=== PATIENT | female | born 1960 | race Caucasian/White ===

== ENCOUNTER 2016-09-09 16:34 | Outpatient (CLI) | payer OTHER | END 2016-09-09 16:35 | disposition home or self-care (01) | DX: R07.81 Pleurodynia (principal) ==

== ENCOUNTER 2018-11-14 17:49 | Emergency (ER) | payer OTHER ==
[2018-11-14 18:00] VITALS: BP 124/86
--- NOTE | 2018-11-14 18:49 | XRAY Report ---
Reason: pain, fall,twisted Procedure Date: 11/14/2018 Accession Number: [id number] / [id number] Procedure: XR - Ankle 3 View RT CPT Code: FULL RESULT: EXAM: RIGHT ANKLE RADIOGRAPHY EXAM DATE: 11/14/2018 06:18 PM. CLINICAL HISTORY: Pain, fall,twisted. COMPARISON: None. TECHNIQUE: 3 views. FINDINGS: Bones: Normal. No fractures or bone lesions. Joints: Normal. No effusion. No subluxations. The ankle mortise is normally aligned. Soft Tissues: There is ossification of the inferior Achilles tendon. IMPRESSION: Negative for fracture and subluxation. RADIA
[2018-11-14] MEDS ORDERED: ACETAMINOPHEN 325 MG TABLET PO STA (19:23)
[2018-11-14] MEDS ORDERED: IBUPROFEN 600 MG TABLET PO STA (19:23)
--- NOTE | 2018-11-14 19:24 | ED Physician Documentation ---
PD HPI LOWER EXT INJURY - Stated complaint Stated Complaint: RT FOOT PX - Chief complaint Chief Complaint: Trauma Ext - History obtained from History obtained from: Patient - History of Present Illness PD HPI LOW EXT INJURY LOCATION: Right, Ankle, Foot Type of injury: Twist (inversion) Where injury occurred: Work Timing - onset: Today Timing - details: Abrupt onset, Still present Worsened by: Moving, Other (walking) Associated symptoms: Swelling. No: Weakness, Numbness Similar symptoms before: Has not had sx before Review of Systems Skin: denies: Abrasion (s), Laceration (s) Musculoskeletal: reports: Joint swelling (right ankle) Neurologic: denies: Focal weakness, Numbness PD PAST MEDICAL HISTORY - Past Medical History Past Medical History: No - Past Surgical History Past Surgical History: No - Allergies Allergies/Adverse Reactions: Allergies Allergy/AdvReac Type Severity Reaction Status Date / Time No Known Drug Allergies Allergy Verified 11/14/18 18:00 - Social History Does the pt smoke?: No Smoking Status: Never smoker Does the pt drink ETOH?: Yes ETOH Use: Beer Does the pt have substance abuse?: No PD ED PE NORMAL - Vitals Vital signs reviewed: Yes - General General: Alert and oriented X 3, No acute distress, Well developed/nourished - Derm Derm: Normal color, Warm and dry - Extremities Extremities: Other (right ankle with tenderness right anterolateral aspect, with swelling. Medial and posterior not tender. ) - Neuro Neuro: No motor deficit, No sensory deficit Results - Vitals Vitals: Vital Signs - 24 hr 11/14/18 17:58 Temperature 37.0 C Heart Rate 116 H Respiratory 18 Rate Blood Pressure 124/86 H O2 Saturation 100 Oxygen O2 Source Room air - Rads (name of study) right ankle Radiology: Prelim report reviewed (no fractures), See rad report PD MEDICAL DECISION MAKING - ED course Complexity details: reviewed results, considered differential, d/w patient Departure - Departure Disposition: 01 Home, Self Care Clinical Impression: Ankle sprain Qualifiers: Encounter type: initial encounter Involved ligament of ankle: anterior talofibular ligament Laterality: right Qualified Code(s): S93.491A - Sprain of other ligament of right ankle, initial encounter Condition: Stable Record reviewed to determine appropriate education?: Yes Instructions: ED Sprain Ankle Follow-Up: Simona Santos MD [Primary Care Provider] - Comments: Tylenol ibuprofen or naproxen as needed for pains. Elevate rest and ice the foot often tonight and tomorrow morning to reduce swelling. Use the ankle brace when up and around for the next couple of weeks until fully healed. Crutches initially if needed for discomfort of walking and progress weightbearing as able. Recheck if not improved over the over the next several days to week or fully better by a couple of weeks. Forms: Activity restrictions Discharge Date/Time: 11/14/18 19:46
== END 2018-11-14 19:46 | disposition home or self-care (01) ==
LOC: ED 17:49
DX: S93.491A Sprain of other ligament of right ankle, initial encounter (principal); S93.401A Sprain of unspecified ligament of right ankle, initial encounter; X50.1XXA Overexertion from prolonged static or awkward postures, initial encounter; Y99.0 Civilian activity done for income or pay
CPT/HCPCS: 73610; 99282; 99283; A9270

== ENCOUNTER 2023-01-27 11:09 | Outpatient (CLI) | payer OTHER ==
--- NOTE | 2023-01-27 12:26 | CT Report ---
PROCEDURE: HEAD WO INDICATIONS: SUBDURAL HEMATOMA TECHNIQUE: Noncontrast 4.5 mm thick angled axial sections acquired from the foramen magnum to the vertex. For r adiation dose reduction, the following was used: automated exposure control, adjustment of mA and/or kV according to patient size. COMPARISON: None. FINDINGS: Image quality: Excellent. CSF spaces: Basal cisterns are patent. Mild extra axial fluid deep to the craniectomy.. Ventricles are normal in size and shape. Brain: There is approximately 6 mm of leftward midline shift. There is slightly sunken appearance to the right frontal and temporal lobes. Right anterior frontal and anterior temporal encephalomalacia a nd gliosis. No intracranial masses or hemorrhage. Rob-white matter interface is normal. Skull and face: Status post right-sided decompressive craniectomy. Sinuses: Visualized sinuses and mastoids are clear. IMPRESSION: 1.Postsurgical changes from right decompressive craniectomy. There is asymmetric appearance to the ri ght frontal and temporal lobes, likely secondary to chronic craniectomy. There is approximately 6 mm of leftward midline shift. 2.Encephalomalacia and gliosis within the right anterior frontal and anterior temporal lobes, correla te with history of trauma. 3.Otherwise, no acute intracranial hemorrhage or large loss of rob-white differentiation. 4.Recommend correlation with prior imaging to assess stability of findings. Reviewed by: Dru Vela MD on 01/27/2023 12:25 PM PDT Approved by: Dru Vela MD on 01/27/2023 12:25 PM PDT Station ID: [id number]
== END 2023-01-27 11:10 | disposition home or self-care (01) ==
LOC: DI 11:09
PROVIDERS: ATTEND Nurse Practitioner Acute Care
DX: S06.5XAD Traumatic subdural hemorrhage with loss of consciousness status unknown, subsequent encounter (principal)